=== PATIENT | female | born 1950 | race African-American/Black ===

== ENCOUNTER 2024-06-28 21:08 | Emergency (ER) | payer OTHER ==
[2024-06-28 21:18] VITALS: TEMP 97.9; BMI 27.1
[2024-06-28] MEDS ORDERED: ACETAMINOPHEN 325 MG TABLET (FP) ONE (21:53)
[2024-06-28] MEDS: ACETAMINOPHEN 325 MG TABLET (FP) PO ONE (22:09)
[2024-06-28 22:18] LABS: BASO % 0.5 % (0-2.0); EOS % 0.1 % (0-4.5); HEMATOCRIT 38.4 % (32.4-45.2); HEMOGLOBIN 12.6 GM/dL (10.7-15.3); LYMPH % 11.9 % (8-40); MCH 27.2 pg (25.7-33.7); MCHC 32.9 g/dl (32.0-36.0); MEAN CELL VOLUME 82.8 fl (80-96); MEAN PLT VOLUME 7.6 fl (7.5-11.1); MONO % 5.2 % (3.8-10.2); NEUT % 82.3 % (42.8-82.8); PLATELET COUNT 290 10^3/uL (134-434); RBC 4.64 M/mm3 (3.60-5.2); RDW 14.9 % (11.6-15.6); WHITE BLOOD COUNT 9.6 K/mm3 (4.0-10.0)
[2024-06-28 22:26] LABS: INR 1.04 (0.83-1.09)
[2024-06-28 22:29] LABS: ACTIVATED PTT 32.3 SECONDS (25.2-36.5)
[2024-06-28 22:37] LABS: POTASSIUM 3.6 mmol/L (3.5-5.1)
[2024-06-28 22:38] LABS: CALCIUM 9.7 mg/dL (8.5-10.1)
[2024-06-28 22:39] LABS: ALBUMIN 4.2 g/dl (3.4-5.0); BLOOD UREA NITROGEN 22.2 mg/dL (7-18)
[2024-06-28 22:42] LABS: CREATININE 1.5 mg/dL (0.55-1.3)
[2024-06-28 22:44] LABS: BILIRUBIN,TOTAL 0.4 mg/dL (0.2-1); TOT PROT 7.6 g/dl (6.4-8.2)
[2024-06-29 00:07] VITALS: BP 164/79; PULSE 100; RESP 20
== END 2024-06-29 00:14 | disposition home or self-care (01) ==
LOC: JER 21:08
DX: R07.89 Other chest pain (principal); I10 Essential (primary) hypertension
CPT/HCPCS: 36415; 71045-TC-FY; 80053; 84484; 85025; 85610; 85730; 93005; 93010; 99285-25